=== PATIENT | female | born 1945 | race Caucasian/White ===

== ENCOUNTER → 2016-08-30 | Outpatient (CLI) | payer MEDICARE, BC | LOC: LAB.O 08:51 | PROVIDERS: ATTEND Family Medicine | DX: M06.9 Rheumatoid arthritis, unspecified (principal); Z79.899 Other long term (current) drug therapy ==

== ENCOUNTER → 2016-10-06 | Outpatient (CLI) | payer MEDICARE, BC ==
--- NOTE | 2016-10-07 06:45 | MRI ---
Study: MRI of the Lumbar Spine. Indication: RADICULOPATHY. Low back pain radiating to the right hip and buttocks. Technique: Multiplanar, multi sequence MRI of the lumbar spine was obtained without intravenous contrast. Comparison: None. Findings: The designated L5-S1 disc space level is visualized on axial T2 image 3. Vertebral body height maintained. Levoscoliosis lumbar spine centered at L3-L4. Lumbar pedicles congenitally short throughout. No marrow infiltrating lesion. Conus medullaris normal in caliber and signal terminating at T12-L1. Level by level analysis as follows: T12-L1: Mild disc space height loss and disc desiccation with a 3 mm broad-based central disc protrusion and annular fissuring at its base, otherwise unremarkable L1-L2: Moderate anterior disc space height loss and disc desiccation with mild Modic type 2 endplate changes. 3 mm disc bulge and mild bilateral neural foraminal narrowing. No spinal canal narrowing. Mild bilateral facet arthrosis. L2-L3: Moderate right lateral disc space height loss and disc desiccation with patchy Modic type 2 endplate changes. 3 mm disc bulge with moderate bilateral facet arthrosis. Tiny facet joint effusions. Indentation ventral thecal sac with mild spinal canal narrowing, mid sagittal thecal center 9 mm. Mild bilateral recess narrowing. Mild bilateral neural foraminal narrowing. L3-L4: Trace retrolisthesis. Severe right lateral disc space height loss and disc desiccation with patchy Modic type 1 and 2 endplate changes. 4 mm right eccentric disc osteophyte complex and moderate bilateral facet arthrosis. Prominent dorsal epidural fat. Severe spinal canal narrowing, mid sagittal thecal sac diameter 4.5 mm. Severe right and mild to moderate left neural foraminal narrowing. L4-L5: Severe left lateral disc space height loss and disc desiccation with trace retrolisthesis. 4 mm left eccentric disc bulge. Moderate bilateral facet arthrosis. Superimposed small left paracentral disc extrusion measuring up to 4 mm AP by 10 mm transverse by 12 mm craniocaudal with extension below the disc space level. There is resultant moderate to severe left lateral recess narrowing, moderate to severe spinal canal narrowing, moderate right lateral recess narrowing. Mid sagittal thecal sac diameter 5.7 mm. Severe left and mild to moderate right neural foraminal narrowing. 8 mm synovial cyst emanates from the posterior inferior margin of the left facet joint. L5-S1: Mild to moderate disc space height loss and disc desiccation with a 3.5 mm left eccentric disc bulge and moderate bilateral facet arthrosis. There is resultant moderate left neural foraminal narrowing. 6 mm synovial cyst emanates from the posterior inferior margin left facet joint. Impression: Fairly pronounced multilevel lumbar disc disease accentuated by congenitally short lumbar pedicles. Findings are most significant at the L3-L4 disc space level where there is severe spinal canal narrowing in addition to severe right and mild to moderate left neural foraminal narrowing. Additional findings as above. Electronically signed by: Cristi Gage MD 10/07/2016 06:43
== END | disposition home or self-care (01) ==
LOC: MRI 07:32
PROVIDERS: ATTEND Specialist
DX: M48.06 Spinal stenosis, lumbar region (principal)

== ENCOUNTER → 2017-06-01 | Outpatient (CLI) | payer MEDICARE, BC | END | disposition home or self-care (01) | LOC: GMAJ 10:25 | PROVIDERS: ATTEND Family Medicine | DX: M06.9 Rheumatoid arthritis, unspecified (principal); I10 Essential (primary) hypertension ==

== ENCOUNTER → 2017-08-16 | Outpatient (CLI) | payer MEDICARE, BC ==
--- NOTE | 2017-08-16 16:25 | US ---
EXAM DESCRIPTION: Carotid Duplex: ULTRASOUND. CLINICAL HISTORY: OTHER SPECIFIED SYMPTOMS AND SIGNS INVOLVING THE CIRCULATORY... COMPARISON: None. TECHNIQUE: Transcutaneous scanning utilizing 2-dimensional and Doppler modes to evaluate the bilateral carotid systems and vertebral arteries. Percentage of diameter of stenosis or no stenosis recorded will be based upon NASCET criteria. FINDINGS: Peak systolic/end diastolic (CM-Sec) CCA Right 106/16 Left 76/17. ICA Right proximal 70/18, mid 68/24. Left proximal 66/22, distal 63/18. Vertebral Right 51/17 Left 37/5. ECA (PS Only) Right 76 left 47. ICA/CCA peak systolic ratio: Right 0.7 Left 0.9 ICA/CCA end diastolic ratio: Right 1.1 Left 1.3 Vertebral arteries: antegrade flow. Comments: Atherosclerotic thickening on one wall of the left proximal ICA. Area stenosis is 9%. Diameter stenosis is 28%. Focal atherosclerotic thickening along one wall of the right CCA bulb. Area stenosis is 23%, diameter stenosis is 39%. Bilateral arterial waveforms of the proximal ICAs show spectral broadening. IMPRESSION: 1. Doppler evaluation of the bilateral carotid systems and vertebral arteries shows no hemodynamically significant stenoses. 2. No significant amount of plaque seen in the carotid arteries bilaterally. Bilateral vertebral arteries showed antegrade-cephalad flow. Electronically signed by: Cornelio Bang MD 08/16/2017 4:23 PM MOLDING MACHINE OPERATOR HELPER
== END | disposition home or self-care (01) ==
LOC: US 12:51
PROVIDERS: ATTEND Family Medicine
DX: R09.89 Other specified symptoms and signs involving the circulatory and respiratory systems (principal)

== ENCOUNTER → 2017-10-31 | Outpatient (CLI) | payer MEDICARE, BC | LOC: GMAJ 12:29 | PROVIDERS: ATTEND Family Medicine | DX: Z79.899 Other long term (current) drug therapy (principal) ==

== ENCOUNTER → 2018-03-15 | Outpatient (CLI) | payer MEDICARE, BC ==
--- NOTE | 2018-03-16 12:51 | MAM ---
EXAM DESCRIPTION: 3D Screening BILATERAL : Digital Mammography. CLINICAL HISTORY: 72 years Female SCREENING . No complaints. Sister with breast cancer. Childbirth. Postmenopausal. Currently on HRT.. COMPARISON: 2-D digital screening bilateral study 12/08/2015. No prior reports available. TECHNIQUE: Bilateral CC and MLO projection full-field images, 3-D tomosynthesis digital mammographic technique. CAD not utilized. FINDINGS: The breast parenchymal density pattern is: Scattered areas of fibroglandular density. No skin thickening or nipple retraction. Bilateral axillary lymph nodes. Bilateral solitary microcalcifications. Bilateral vascular calcifications. No new focal, stellate mass or density, focal asymmetry , and no suspicious microcalcifications bilaterally. Stable mammograms compared to prior study, taking into account differences in mammographic technique. IMPRESSION: BI-RADS CATEGORY: 2 - BENIGN FINDINGS. FOLLOW UP: Routine digital bilateral screening, one year interval from March 2018. Written communication explaining the IMPRESSION and follow-up, will be mailed to the patient and referring health care provider. According to the [employer], yearly mammograms are recommended starting at age 40 and continuing as long as a woman is in good health. Any breast change noted on a breast self-exam should be reported promptly to the patient's healthcare provider. Breast MRI is recommended for women with an approximately 20-25% or greater lifetime risk of breast cancer, including women with a strong family history of breast or ovarian cancer and women who have been treated for Hodgkin's disease. A negative mammographic report should not delay tissue diagnosis in patients with significant clinical history or physical findings. Extremely dense breast tissue limits the sensitivity of digital mammography. Electronically signed by: Cornelio Bang MD 03/16/2018 12:50 PM CDT
== END ==
LOC: MAMMO 08:00
PROVIDERS: ATTEND Family Medicine
DX: Z12.31 Encounter for screening mammogram for malignant neoplasm of breast (principal)

== ENCOUNTER → 2018-07-24 | Outpatient (CLI) | payer BC, MEDICARE | LOC: GMAJ 10:40 | PROVIDERS: ATTEND Family Medicine | DX: M06.9 Rheumatoid arthritis, unspecified (principal) ==

== ENCOUNTER → 2018-09-13 | Outpatient (CLI) | payer MEDICARE, BC ==
--- NOTE | 2018-09-13 18:45 | MRI ---
EXAM DESCRIPTION: Lumbar Spine w/wo Contrast: Magnetic Resonance Imaging. CLINICAL HISTORY: SPONDYLOSIS LUMBAR REGION COMPARISON: None Available. TECHNIQUE: Multiplanar, MRI, multiple standard sequences, without and with standard dose Gadolinium IV contrast, lumbar spine. No adverse reactions. FINDINGS: L5-S1: Posterior bilateral L5 partial laminectomy is the prior study. Bilateral facet arthrosis more left than right. Minimal disc desiccation and minimal posterior bulge in the midline. Disc space loss and Modic type II endplate reactive changes to the left of midline with moderate narrowing of the left foramen. Mild narrowing of the right foramen. Edema behind the left facet joint with minimal enhancement. Normal enhancement in the thecal sac. Minimal canal narrowing. L4-5: Minimal disc space loss on the right and moderate disc space loss on the left with Modic type II endplate reactive changes. Anterior disc bulge and endplate ridging. Trace retrolisthesis. Posterior disc bulge in the midline into the left of midline. Mild canal narrowing. Also bulge with spur below the disc space encroaching on the left subarticular recess and the descending left L5 nerve. Granulation tissue around the partial laminectomy site, minimal enhancement. Bilateral facet arthrosis left more than right with flavum ligament hypertrophy. Minimal enhancement of the facet joints left more than right. Question deformity or defect of the left L4 pars interarticularis. Left foraminal stenosis and mild right foraminal narrowing. No abnormal enhancement in the thecal sac. L3-4: Minimal narrowing of the left side of the disc space and moderate to severe narrowing right side with Modic type II endplate reactive changes. Anterior bulge with endplate ridging. Grade 1 anterolisthesis 4 mm. Posterior broad-based bulge abutting the thecal sac and disc bulge inferiorly effacing the bilateral lateral recesses. Mild canal narrowing. Right side disc osteophyte complex encroachment on the foramen which is stenotic. Stable since the prior study. Left foramen is minimally narrowed. Enhancement of the anterior L3 endplate but no enhancement in the remaining endplates or disc. No fluid or abnormal enhancement in the canal. L2-3: Disc desiccation and minimal disc space loss on the left. Anterior disc bulge and spurs. Moderate disc space loss on the right with disc osteophyte complex bulging into the soft tissues and moderate narrowing of the foramen. Modic type II endplate reactive changes on the right. Minimal enhancement, but no fluid collection. 2 mm grade 1 retrolisthesis. Disc and osteophyte bulge posteriorly to the right of midline and inferior to the disc space encroaching on the right subarticular recess. Mild to moderate canal narrowing. Flavum ligament hypertrophy bilaterally with facet arthrosis. Hyperintense T1 and T2 signal in the posterior inferior L2 endplate circumscribed. Hypointense on STIR image. L1-2: Disc desiccation anterior disc bulge and spurs and minimal disc space loss. Posterior broad-based bulge. Facet arthrosis and ligament hypertrophy bilaterally. Moderate right foraminal narrowing and mild left foraminal narrowing. Marrow heterogeneity. Normal contrast enhancement. Mild canal narrowing. T12-L1: Disc space maintained with minimal disc desiccation. Tiny posterior midline bulge with T2-weighted annular fissure. Circumscribed hyperintense T1 and T2 signal in the T11, T12, and L1 vertebral bodies. Mild canal narrowing. Bilateral foraminal mild narrowing. Conus terminates at this level. No abnormal paravertebral enhancement or enhancement in the canal. Moderate L1-L4 levoscoliosis. Vertebral bodies are not compressed at any level. Multiple foci of heterogeneous marrow signal in the vertebral bodies and the posterior elements with no corresponding abnormal contrast enhancement.. No other regions of abnormal Contrast enhancement. Paravertebral soft tissues with muscle atrophy.Perivertebral contrast enhancement as described. IMPRESSION: 1. Bilateral L5 and L4 partial laminectomy since the prior study. Minimal enhancement of the granulation tissue and posterior soft tissues at these levels but no definite soft tissue mass or fluid collection. No abnormal enhancement in the canal or abnormal fluid collection in the canal at any level. 2. Minimal contrast enhancement in the soft tissues abutting the left L5-S1 facet joint which could indicate acute inflammation. No soft tissue mass. Enhancement of paravertebral soft tissues and disc osteophyte complex to the right of midline at the L2-3 level which can indicate acute inflammation. If the impression of spondylosis since the prior study. No fluid collection. 3. Left subarticular recess narrowing versus stenosis at L4-5 secondary to disc osteophyte encroachment, correlate for left L5 radiculopathy. Resection of prior herniated disc. Left foraminal stenosis secondary to spondylosis and facet arthrosis which could be causing left L4 radiculopathy. This is progressed since the prior study. Possible spondylolysis left L4 pars. 4. Posterior bulge of the L3-4 disc osteophyte complex encroaching on the bilateral lateral recesses more right than left with grade 1 retrolisthesis. Correlate for right L4 radiculopathy. Right foraminal stenosis could be causing impingement of the right L3 nerve. Stable since the prior study. 5. Posterior midline right L2-3 disc osteophyte complex bulge into the canal and below the endplate effacing the right subarticular recess possibly encroaching on the right L3 nerve. This is progressed since the prior study. Electronically signed by: Cornelio Bang MD 09/13/2018 6:42 PM MAJOR SALES ASSOCIATE
== END ==
LOC: LAB.O 09:56
PROVIDERS: ATTEND Anesthesiology Pain Medicine
DX: M47.896 Other spondylosis, lumbar region (principal); M51.86 Other intervertebral disc disorders, lumbar region; M25.78 Osteophyte, vertebrae

== ENCOUNTER → 2018-09-20 | Outpatient (CLI) | payer MEDICARE, BC | LOC: GMAJ 11:25 | PROVIDERS: ATTEND Family Medicine | DX: M06.9 Rheumatoid arthritis, unspecified (principal) ==

== ENCOUNTER → 2018-12-13 | Outpatient (CLI) | payer MEDICARE, BC ==
--- NOTE | 2018-12-13 19:30 | MRI ---
EXAM DESCRIPTION: Thoracic Spine w/o Contrast: Magnetic Resonance Imaging. CLINICAL HISTORY: SPONDYLOSIS THORACIC REGION COMPARISON: MRI lumbar spine 09/13/2018. TECHNIQUE: Multiplanar, multiple standard sequences, non contrast MRI, thoracic spine. FINDINGS: T2-T3: Anterior disc space loss and endplate ridging. Trace anterolisthesis. Bilateral facet hypertrophic arthrosis and foraminal narrowing, more on the right, with possible compromise of the right exiting T2 nerve root. Facet arthrosis on the right at T3-4 also narrowing the foramen. Desiccation of the disc with anterior endplate ridging but no posterior bulging. Remaining foramina are unremarkable. Desiccation of the T5-6 disc, T6-7 disc, and T7-T8 disc with anterior endplate ridging. Minimal disc space narrowing. Remaining discs with normal signal. Disc spaces are preserved. Canal and foramina are patent. No scoliosis. Facet joints are unremarkable. Conus terminates below the T12-L1 disc space. Cord with normal signal, no compression. Paravertebral soft tissues are unremarkable. Circumscribed hyperintense T1 and T2 signal in theT2, T3, T4, T6, T7, T8, T10, T11, and T12 vertebral bodies consistent with hemangiomas. Heterogeneous marrow signal in the remaining vertebral bodies and the posterior elements. Vertebral bodies are not compressed at any level. IMPRESSION: 1. Bilateral narrowing of the T2-T3 foramina secondary to facet arthrosis, more on the right with possible compromise of the right exiting T2 nerve. Disc desiccation. 2. Facet arthrosis on the right at T3-4 narrowing the foramen with anterior disc desiccation. No disc herniation at any level.. Electronically signed by: Cornelio Bang MD 12/13/2018 7:28 PM CDT
== END ==
LOC: MRI 10:00
PROVIDERS: ATTEND Anesthesiology Pain Medicine
DX: M47.894 Other spondylosis, thoracic region (principal); M51.34 Other intervertebral disc degeneration, thoracic region

== ENCOUNTER → 2019-02-13 | Outpatient (CLI) | payer MEDICARE, BC | LOC: GMAJ 10:45 | PROVIDERS: ATTEND Family Medicine | DX: M06.9 Rheumatoid arthritis, unspecified (principal) ==

== ENCOUNTER → 2019-09-03 | Outpatient (CLI) | payer BC, MEDICARE | LOC: GMA 10:34 | PROVIDERS: ATTEND Family Medicine | DX: M06.9 Rheumatoid arthritis, unspecified (principal); E78.2 Mixed hyperlipidemia ==

== ENCOUNTER → 2019-12-05 | Outpatient (CLI) | payer MEDICARE, OTHER | LOC: GMAJ 11:31 | PROVIDERS: ATTEND Family Medicine | DX: M06.9 Rheumatoid arthritis, unspecified (principal) ==

== ENCOUNTER 2019-12-13 05:36 | Day surgery (SDC) | payer MEDICARE, OTHER ==
[2019-12-13] MEDS ORDERED: LACTATED RINGERS 1,000 ML ONE (06:52)
[2019-12-13] MEDS ORDERED: PROPOFOL 200 MG/20 ML VIAL IV ONE (07:00)
[2019-12-13] MEDS ORDERED: LIDOCAINE 1% 10 ML VIAL INJ ONE (07:00)
[2019-12-13] MEDS ORDERED: ePHEDrine SULF 50 MG/ML ONE (07:00)
[2019-12-13] MEDS ORDERED: LACTATED RINGERS 1,000 ML IVS ONE (08:05)
--- NOTE | 2019-12-13 09:01 | OP ---
DATE OF PROCEDURE: 12/13/19 PREOPERATIVE DIAGNOSIS: 1. Chest pain. 2. Gastroesophageal reflux disease. POSTOPERATIVE DIAGNOSIS: 1. Gastritis. PROCEDURE: 1. EGD with pylorus biopsy x2. 2. EGD with esophageal biopsy x1. SURGEON: Felipe Trimble MD ANESTHESIA: General. FINDINGS: She had striping in the pylorus consistent with gastritis. The duodenum appeared normal. There was a hiatal hernia approximately 4.5 cm. There was a non-digested pill in the body of her stomach with the number 152 on it and a small polyp in the esophagus. There were about three of them and they looked inflammatory. No severe esophagitis was seen. No evidence of Martin's esophagus seen. COMPLICATIONS: None. ESTIMATED BLOOD LOSS: None. PLAN: Discharge. INDICATION: As stated. PROCEDURE: General anesthesia was induced in the lateral position. The endoscope was introduced without difficulty. At the distal esophagus, there was a turn and it was difficult getting into the stomach, but we did. There did not appear to be any stricturing. It was simply the hiatal hernia in the angle, but we got in safely. We went through to the third portion of the duodenum and did not notice any significant duodenitis or ulcers. Upon withdrawal, we had the watermelon type striping in the pylorus. Two biopsies were taken, one for H. pylori. Retroflexion revealed the hiatal hernia just over 4 cm. There was no evidence of ulcers there. The pill that was there undigested, she had taken it this morning. I do not know exactly what time, but hours ago, but this was not digesting on the antacids she is taking. On withdrawal, there were a couple of small, flat polyps that appeared hyperplastic. One was taken as a representation. Otherwise, the esophagus appeared normal with good peristalsis as well. Upon withdrawal, I suctioned the air and a little bit of mucus. She was then awakened and taken to Recovery to be discharged. #[id number] [facility]
[2019-12-13 15:09] VITALS: BP 129/69; TEMP 97; O2SAT 96
== END 2019-12-13 09:40 | disposition home or self-care (01) ==
LOC: AMB 05:36
PROVIDERS: ATTEND Surgery
DX: K21.9 Gastro-esophageal reflux disease without esophagitis (principal); K29.70 Gastritis, unspecified, without bleeding; K44.9 Diaphragmatic hernia without obstruction or gangrene; K22.8 Other specified diseases of esophagus; I10 Essential (primary) hypertension; E78.00 Pure hypercholesterolemia, unspecified; F32.9 Major depressive disorder, single episode, unspecified; M06.9 Rheumatoid arthritis, unspecified; Z80.0 Family history of malignant neoplasm of digestive organs; Z79.82 Long term (current) use of aspirin; Z79.899 Other long term (current) drug therapy; Z88.2 Allergy status to sulfonamides
CPT/HCPCS: 00731; 43239; 82948; 88305; 88342; J3490; J7120

== ENCOUNTER → 2020-01-01 | Outpatient (CLI) | payer MEDICARE, OTHER ==
--- NOTE | 2020-01-01 14:36 | US ---
EXAM DESCRIPTION: Gall Bladder: ULTRASOUND. CLINICAL HISTORY: EPIGASTRIC PAIN COMPARISON: None. TECHNIQUE: Transabdominal scanning: Garcia-scale and Doppler modes. FINDINGS: Gallbladder: Normal size. Echogenic stones measuring 4.7-2.9 mm. No fluid around the gallbladder. No wall thickening. 2.4 mm. Non-tender with transducer pressure. Common bile duct: caliber 4.5 mm within normal limits. Liver: Increased echogenicity; contour liver capsule smooth where seen. 2.2 cm cyst and 1.3 cm cyst in the left lobe. 2.2 cm cyst in the right lobe. No fluid around the liver. Intrahepatic biliary ducts normal caliber. Doppler hepatopedal flow portal vein.. Long axis right lobe 16.6 Pancreas: normal size Normal echogenicity. Duct not seen. Aorta: 2.2 cm normal caliber. Right kidney: long axis is 10.4 cm. Normal cortical thickness and physiologic age-related echogenicity. Minimal capsular lobulation. No echogenic stones or hydronephrosis.. IMPRESSION: 1. Small gallstones. No wall thickening or fluid. Nontender. Common bile duct normal caliber. 2. Fatty liver with normal size. Multiple cysts in both lobes. Otherwise unremarkable. Negative scans of the pancreas. 3. Age-related changes in the right kidney. Normal caliber of the proximal abdominal aorta. Electronically signed by: Cornelio Bang MD 01/01/2020 2:34 PM CDT
== END ==
LOC: US 08:38
PROVIDERS: ATTEND Surgery
DX: K80.20 Calculus of gallbladder without cholecystitis without obstruction (principal); K76.0 Fatty (change of) liver, not elsewhere classified; K76.89 Other specified diseases of liver; N28.9 Disorder of kidney and ureter, unspecified

== ENCOUNTER 2020-01-30 05:41 | Day surgery (SDC) | payer MEDICARE, OTHER ==
[~2020-01-30 05:41] MED LIST: ACETAMINOPHEN IV 1000MG 0 ML ONE; DEXMEDETOMIDINE HCL 200 MCG/2 ML INJ IV ONE; FAMOTIDINE INJ 10 MG/ML VIAL IV ONE; KETAMINE HCL 100 MG/ML VIAL ONE; MIDAZOLAM INJ 2 MG/2 ML VIAL ONE; ROCURONIUM BROMIDE 10 MG/ML VIAL ONE; SUGAMMADEX SODIUM 200 MG/2 ML VIAL IV ONE; fentaNYL CITRATE INJ 50 MCG/ML 2 ML AMP ONE
[2020-01-30] MEDS ORDERED: LACTATED RINGERS 1,000 ML ONE (06:33)
[2020-01-30] MEDS ORDERED: PROPOFOL 200 MG/20 ML VIAL IV ONE (07:00)
[2020-01-30] MEDS ORDERED: LIDOCAINE 1% 10 ML VIAL INJ ONE (07:00)
[2020-01-30] MEDS ORDERED: DEXAMETHASONE INJ 10 MG/ML VIAL ONE (07:00)
[2020-01-30] MEDS ORDERED: MAGNESIUM SULFATE INJ 1 GM/2 ML VIAL ONE (07:00)
[2020-01-30] MEDS ORDERED: BUPIVACAINE 0.5% W/EPI 30 ML VIAL INJ ONE ×3 (08:08→08:14)
[2020-01-30] MEDS ORDERED: LACTATED RINGERS 1,000 ML IVS ONE (08:20)
[2020-01-30] MEDS ORDERED: SUGAMMADEX SODIUM 200 MG/2 ML VIAL IV ONE (09:01)
[2020-01-30] MEDS ORDERED: MIDAZOLAM INJ 2 MG/2 ML VIAL ONE (09:02)
[2020-01-30] MEDS ORDERED: fentaNYL CITRATE INJ 50 MCG/ML 2 ML AMP ONE (09:02)
[2020-01-30] MEDS ORDERED: FAMOTIDINE INJ 10 MG/ML VIAL IV ONE (09:02)
[2020-01-30] MEDS ORDERED: ROCURONIUM BROMIDE 10 MG/ML VIAL ONE (09:02)
[2020-01-30] MEDS ORDERED: hydrALAZINE HCl 20 MG/ML VIAL ONE (09:50)
--- NOTE | 2020-01-30 10:31 | OP ---
DATE OF PROCEDURE: 01/30/20 PREOPERATIVE DIAGNOSIS: 1. Symptomatic cholelithiasis. POSTOPERATIVE DIAGNOSIS: 1. Symptomatic cholelithiasis. PROCEDURE: 1. Laparoscopic cholecystectomy. SURGEON: Felipe Trimble MD. ANESTHESIA: General and local. FINDINGS: Normal anatomy. COMPLICATIONS: None. ESTIMATED BLOOD LOSS: Minimal. SPECIMEN: Gallbladder. PLAN: Discharge. INDICATION: As stated. PROCEDURE: General anesthesia was induced. The patient was prepped and draped in sterile fashion. Marcaine 0.5% with epinephrine was used at all incision sites. While maintaining upward traction, a robert was made near the base of the umbilicus. Veress needle was introduced. There was free flow of fluid into the peritoneal cavity which was insufflated to an appropriate level with CO2 gas. The 5 mm trocar was placed followed by the camera. There was no evidence of bleeding or bowel injury. The patient was positioned and subxiphoid and lateral ports were placed under direct visualization without difficulty. The gallbladder fundus was easily identified. It was grasped and retracted superiorly and laterally. The infundibulum was grasped. The infundibular structures were dissected free. An anterior vessel was cauterized and the main duct and artery were triply ligated. The gallbladder was then dissected off the fossa in total and removed in the EndoCatch bag. The fossa was examined. It remained hemostatic. The clips were intact. There was no bleeding or bile leakage. The subxiphoid fascia was then closed with 0 Vicryl using the suture passer. It was airtight and non-bleeding. The remaining trocars were removed. There was no bleeding from the trocar sites. The wounds were irrigated and closed with Monocryl. Dressings were applied. The patient was awakened and taken to Recovery to be discharged. #[id number] [facility]
[2020-01-30] MEDS ORDERED: HYDROcodone 5MG/APAP 325MG 1 EA TAB ONE (10:47)
[2020-01-30 12:20] VITALS: BP 124/66; TEMP 96.7; O2SAT 96
== END 2020-01-30 11:50 | disposition home or self-care (01) ==
LOC: AMB 05:41
PROVIDERS: ATTEND Surgery
DX: K80.10 Calculus of gallbladder with chronic cholecystitis without obstruction (principal); I10 Essential (primary) hypertension; M06.9 Rheumatoid arthritis, unspecified; F32.9 Major depressive disorder, single episode, unspecified; E78.00 Pure hypercholesterolemia, unspecified; K21.9 Gastro-esophageal reflux disease without esophagitis; I25.10 Atherosclerotic heart disease of native coronary artery without angina pectoris; E66.9 Obesity, unspecified; Z88.2 Allergy status to sulfonamides; Z79.82 Long term (current) use of aspirin; Z79.899 Other long term (current) drug therapy; Z79.52 Long term (current) use of systemic steroids
CPT/HCPCS: 00790; 36415; 47562; 80053; 85025; 88304; 93005; J0360; J1100; J2250; J3010; J3475; J3490; J7120

== ENCOUNTER → 2020-02-20 | Outpatient (CLI) | payer MEDICARE, OTHER ==
--- NOTE | 2020-02-21 10:22 | MAM ---
EXAM DESCRIPTION: 3D Screening BILATERAL : Digital Mammography. CLINICAL HISTORY: 74 years Female ANNUAL SCREENING . No complaints. Female sibling with breast cancer at age 65. Menarche age 15. Childbirth age 19. Menopause age 56. HRT 5 or more years ago. Lifetime risk of developing breast cancer (Tyrer-Cuzick model)(%): 7.3. COMPARISON: Bilateral screening digital breast tomosynthesis March 2018. TECHNIQUE: Bilateral CC and MLO projection full-field images, digital tomosynthesis mammographic technique. Bilateral digital 2-D full-field MLO images. CAD available for 2-D images. FINDINGS: The breast parenchymal density pattern is: Scattered areas of fibroglandular density. No skin thickening or nipple retraction. Skin mole markers left breast. Retroareolar right breast focal asymmetry has increased since the prior study. No new focal, stellate mass or density, focal asymmetry , and no suspicious microcalcifications left breast. IMPRESSION: BI-RADS CATEGORY: 0 - INCOMPLETE- Need additional imaging evaluation. RECOMMENDATIONS: FOLLOW-UP: Recall for additional imaging: Directed right breast. Ultrasound of the region of interest. Written communication concerning the IMPRESSION and Follow-up, will be mailed to the patient and referring health care provider. Electronically signed by: Cornelio Bang MD 02/21/2020 10:21 AM CDT
== END ==
LOC: MAMMO 08:20
PROVIDERS: ATTEND Family Medicine
DX: Z12.31 Encounter for screening mammogram for malignant neoplasm of breast (principal)

== ENCOUNTER → 2020-03-03 | Outpatient (CLI) | payer MEDICARE, OTHER | LOC: GMAJ 14:36 | PROVIDERS: ATTEND Family Medicine | DX: M06.9 Rheumatoid arthritis, unspecified (principal); E78.2 Mixed hyperlipidemia ==

== ENCOUNTER → 2020-03-09 | Outpatient (CLI) | payer MEDICARE, OTHER ==
--- NOTE | 2020-03-10 08:49 | US ---
EXAM DESCRIPTION: Breast,Right: Ultrasound. CLINICAL HISTORY: 74 yearsFemaleABNORMAL MAMMO. Focal asymmetry right breast. COMPARISON: Bilateral screening digital breast tomosynthesis February 19. TECHNIQUE: Transcutaneous scanning of the retroareolar right breast utilizing french-scale and Doppler modes. Scanning performed by the tube cutter ; observation by Dr. Bang. FINDINGS: Mixture of fatty tissues and fibroglandular tissues, retroareolar right breast. Small ducts. Normal vascularity. Typical post periareolar shadowing. No dominant mass, no distinct cyst, no fluid collection, and no large calcifications. No overlying skin changes. IMPRESSION: Benign exam. BIRAD CATEGORY: 2 BENIGN FINDINGS. RECOMMENDATIONS: FOLLOW UP: Routine digital bilateral mammographic screening, one year interval from February 2020. Written communication explaining the IMPRESSION and follow-up, will be mailed to the patient and referring health care provider. The FINDINGS and the FOLLOW-UP plan were reviewed in person with the patient after the examination. According to the [employer], yearly mammograms are recommended starting at age 40 and continuing as long as a woman is in good health. Any breast change noted on a breast self-exam should be reported promptly to the patient's healthcare provider. Breast MRI is recommended for women with an approximately 20-25% or greater lifetime risk of breast cancer, including women with a strong family history of breast or ovarian cancer and women who have been treated for Hodgkin's disease. A negative mammographic report should not delay tissue diagnosis in patients with significant clinical history or physical findings. Extremely dense breast tissue limits the sensitivity of digital mammography. Electronically signed by: Cornelio Bang MD 03/10/2020 8:47 AM CDT
== END ==
LOC: MAMMO 10:00
PROVIDERS: ATTEND Family Medicine
DX: R92.8 Other abnormal and inconclusive findings on diagnostic imaging of breast (principal)

== ENCOUNTER 2020-04-13 13:12 | Inpatient (IN) | payer MEDICARE, OTHER ==
--- NOTE | 2020-04-13 13:30 | ED.PDOC ---
History of Present Illness - General Time Seen by Provider: 04/13/20 13:27 Source: patient, RN notes reviewed, Vital Signs reviewed, family Additional Information: .74-year-old female, presents to the ER because she was not acting right today, per daughter she is usually very active, and today patient was not feeling well very weak, daughter is a nurse and she noticed that when she woke up this morning she was not doing well, they finally were able to get her to walk but he states that she is very weak and not her usual last time Was seen normal normal was yesterday Rheumatoid arthritis, and history of back pain, no previous history of stroke no known fever no chills and no sick contact patient was hypoxic at first Nurse, and she was put on oxygen with improvement of symptoms she was put nasal cannula at 3 - History of Present Illness Timing/Duration: other - this morning Improving Factors: nothing Worsening Factors: nothing Associated Symptoms: denies symptoms Allergies/Adverse Reactions: Allergies Sulfa Antibiotics Allergy (Verified 04/13/20 14:34) Home Medications: Ambulatory Orders Aspirin [Baby Aspirin] 81 mg PO DAILY 10/28/14 B-Complex W/ C & Folic Acid [Folbee Plus] 1 tab PO DAILY 10/28/14 Ibuprofen [Motrin] 600 mg PO QID PRN #30 tab 10/28/14 Methotrexate Inj [(None)] 50 mg IM WKLY 10/28/14 Nitroglycerin 0.4 mg Tab [Nitrostat] 1 ea SL PRN PRN 10/28/14 Prednisone 5 mg PO DAILY 10/28/14 Simvastatin [Zocor] 20 mg PO DAILY 10/28/14 B-Complex Vitamins [Vitamin B Complex] 1 tab PO DAILY 12/09/19 Calcium Carbonate-Cholecalcife [Calcium 1000 + D] 1 tab PO DAILY 12/09/19 Carboxymethylcellulose Sodium [Refresh Tears] 0.5 % OP PRN 12/09/19 Chlorthalidone 50 mg PO DAILY 12/09/19 Cholecalciferol [Vitamin D3] 1,000 unit PO DAILY 12/09/19 Duloxetine HCl [Cymbalta] 60 mg PO QPM 12/09/19 Gabapentin [Neurontin] 300 mg PO BID 12/09/19 HYDROcodone 10MG/APAP 325MG [Gay 10/325] 1 tab PO DAILY 12/09/19 Lisinopril [Prinivil] 10 mg PO QAM 12/09/19 Magnesium [Magnesium 250 mg] 1 tab PO DAILY 12/09/19 Metoprolol Succinate [Toprol Xl] 100 mg PO QPM 12/09/19 Multiple Vitamins W/ Minerals [Multivitamin Adults] 1 tab PO DAILY 12/09/19 Niacin 500 mg PO DAILY 12/09/19 David-3 Fatty Acids [David-3 Fish Oil 1000 mg] 1 cap PO DAILY 12/09/19 Potassium 99 mg PO DAILY 12/09/19 l-Methylfolate W/ Algae-Vitami [Metanx 3-90.314-2-35 mg] 1 cap PO DAILY 12/09/19 Cholecalciferol [Vitamin D-3] 2,000 unit PO DAILY 01/14/20 Pantoprazole Tablet [Protonix] 40 mg PO DAILY 01/14/20 Review of Systems - Review of Systems Constitutional: States: weakness EENTM: States: no symptoms reported Respiratory: States: no symptoms reported Cardiology: States: no symptoms reported Gastrointestinal/Abdominal: States: no symptoms reported Genitourinary: States: no symptoms reported Musculoskeletal: States: no symptoms reported Skin: States: no symptoms reported Neurological: States: no symptoms reported Endocrine: States: no symptoms reported Hematologic/Lymphatic: States: no symptoms reported Past Medical History (General) - Patient Medical History Hx Congestive Heart Failure: No Hx Diabetes: No Hx Cancer: No Hx Hepatitis C: No Hx MRSA: No - Vaccination History Hx Influenza Vaccination: Yes Hx Pneumococcal Vaccination: Yes - Social History Hx Tobacco Use: No Hx Alcohol Use: No - Female History Patient : No Family Medical History - Family History Mother Family History: Unknown Physical Exam - Physical Exam General Appearance: Well Developed, Well Groomed, Well Hydrated, Well Nourished Eye Exam: bilateral normal Ears, Nose, Throat: hearing grossly normal, normal ENT inspection, normal pharynx Neck: non-tender, full range of motion, supple, normal inspection Respiratory: chest non-tender, lungs clear, normal breath sounds, no respiratory distress, no accessory muscle use, respiratory distress Cardiovascular/Chest: normal peripheral pulses, regular rate, rhythm, no edema, no gallop, no JVD, no murmur Peripheral Pulses: radial,right: 2+, radial,left: 2+ Gastrointestinal/Abdominal: normal bowel sounds, non tender, soft, no organomegaly, no pulsatile mass Rectal Exam: deferred Back Exam: no CVA tenderness, no vertebral tenderness Extremity: normal range of motion, non-tender, normal inspection, no pedal edema Neurologic: crime specialist II-XII nml as tested, no motor/sensory deficits, alert, normal mood/affect, oriented x 3 Skin Exam: normal color Lymphatic: no adenopathy Progress - Progress Progress: The ER with confusion weakness not acting right, patient has a history of chronic back issues and arthritis, last time that she was seen normal was yesterday woke up this morning with the symptoms with generalized weakness on physical exam I did not see any focal neurological deficit, I ordered basic labs and because of the potential for infection I did order the basic septic work-up including blood cultures lactic acid chest x-ray. Rule out pneumonia I wanted to rule out urinary tract infection, but also because of the generalized weakness and not acting well I got a head CT did not show any evidence of any infection abnormalities, patient lactic acid was elevated so I order a dose of IV Rocephin I was concerned for possible UTI but patient's urine came back normal as well, patient was hypoxic when she first came in so even though the chest x-ray did not show pneumonia I ordered a CTA to rule out pulmonary emboli given the patient does have any response to for PE, I also ordered the covid test Also oredered fluids for the elevated lactic acid,and will admit the patient pending CTA chest 04/13/20 16:10 04/13/20 16:11 Departure - Departure Clinical Impression: Altered mental status Qualifiers: Altered mental status type: unspecified Qualified Code(s): R41.82 - Altered mental status, unspecified Disposition: Admit Patient Referrals: Felipe Delcid MD [Primary Care Provider] - 1-2 Weeks Home Medications: Ambulatory Orders Aspirin [Baby Aspirin] 81 mg PO DAILY 10/28/14 B-Complex W/ C & Folic Acid [Folbee Plus] 1 tab PO DAILY 10/28/14 Ibuprofen [Motrin] 600 mg PO QID PRN #30 tab 10/28/14 Methotrexate Inj [(None)] 50 mg IM WKLY 10/28/14 Nitroglycerin 0.4 mg Tab [Nitrostat] 1 ea SL PRN PRN 10/28/14 Prednisone 5 mg PO DAILY 03/17/15 Simvastatin [Zocor] 20 mg PO DAILY 10/28/14 B-Complex Vitamins [Vitamin B Complex] 1 tab PO DAILY 12/09/19 Calcium Carbonate-Cholecalcife [Calcium 1000 + D] 1 tab PO DAILY 12/09/19 Carboxymethylcellulose Sodium [Refresh Tears] 0.5 % OP PRN 12/09/19 Chlorthalidone 50 mg PO DAILY 12/09/19 Cholecalciferol [Vitamin D3] 1,000 unit PO DAILY 12/09/19 Duloxetine HCl [Cymbalta] 60 mg PO QPM 12/09/19 Gabapentin [Neurontin] 300 mg PO BID 12/09/19 HYDROcodone 10MG/APAP 325MG [Gay 10/325] 1 tab PO DAILY 12/09/19 Lisinopril [Prinivil] 10 mg PO QAM 12/09/19 Magnesium [Magnesium 250 mg] 1 tab PO DAILY 12/09/19 Metoprolol Succinate [Toprol Xl] 100 mg PO QPM 12/09/19 Multiple Vitamins W/ Minerals [Multivitamin Adults] 1 tab PO DAILY 12/09/19 Niacin 500 mg PO DAILY 12/09/19 David-3 Fatty Acids [David-3 Fish Oil 1000 mg] 1 cap PO DAILY 12/09/19 Potassium 99 mg PO DAILY 12/09/19 l-Methylfolate W/ Algae-Vitami [Metanx 3-90.314-2-35 mg] 1 cap PO DAILY 12/09/19 Cholecalciferol [Vitamin D-3] 2,000 unit PO DAILY 01/14/20 Pantoprazole Tablet [Protonix] 40 mg PO DAILY 01/14/20 Decision To Admit - Decistion To Admit Decision to Admit Reason: Admit from ER Decision to Admit Date: 04/13/20 Decision to Admit Time: 16:15
[2020-04-13] MEDS ORDERED: cefTRIAXone SODIUM 1 GM in SODIUM CHL 0.9% 50ML MIN-BAG+ 50 ML IVPB ONE (14:17)
--- NOTE | 2020-04-13 14:28 | RAD ---
EXAM DESCRIPTION: Chest,1 View x-ray CLINICAL HISTORY: 74 years Female, ams COMPARISON: None. IMPRESSION: Heart size and pulmonary vascularity are within normal limits. Atherosclerosis in the thoracic aorta. Hiatal hernia is suspected. Partially imaged dorsal column stimulator leads. Mild bibasilar linear opacities, nonspecific but favored to represent atelectasis or scarring. No pleural effusion or pneumothorax. No acute osseous abnormality. Electronically signed by: Alec Melvin MD 04/13/2020 2:26 PM CDT
--- NOTE | 2020-04-13 14:32 | CT ---
EXAM DESCRIPTION: Head CLINICAL HISTORY: ams COMPARISON: None available TECHNIQUE: Multiple axial images of the head without contrast. Multiplanar reformatted images. This exam was performed according to our departmental dose-optimization program, which includes automated exposure control, adjustment of the mA and/or kV according to patient size and/or use of iterative reconstruction technique. FINDINGS: There is no CT evidence of intracranial hemorrhage, mass effect, or large territory infarction. Mild generalized volume loss. Mild patchy supratentorial white matter hypodensities. There are no abnormal extra-axial fluid collections. Calcific plaque in the visualized arteries. There is no acute calvarial defect. The visualized paranasal sinuses and the mastoids are clear. IMPRESSION: 1. No CT evidence of an acute intracranial abnormality. If there is concern for an acute or subacute infarct, consider follow-up MRI. 2. Mild senescent changes. Electronically signed by: Alec Melvin MD 04/13/2020 2:29 PM CDT
[2020-04-13] MEDS ORDERED: POTASSIUM CHLORIDE 20 MEQ TAB PO ONE ×2 (15:08→21:29)
[2020-04-13] MEDS ORDERED: SODIUM CHLORIDE 0.9% 1000ML 1,000 ML IVS ONE (16:05)
--- NOTE | 2020-04-13 17:42 | CT ---
PROCEDURE: CTA Chest CLINICAL HISTORY: 74 years Female rule pe COMPARISON: None. TECHNIQUE: Contiguous axial images were obtained through the chest during the infusion of IV contrast. Reformatted images obtained. MIP reformatted images obtained. This exam was performed according to our department optimization program which includes automated exposure control, adjustment of the mA and/or kv according to patient size and/or use of iterative reconstruction technique. FINDINGS: Examination is suboptimal for evaluation of pulmonary emboli. The contrast is in the left heart and the aorta not within the pulmonary arteries. Mean Hounsfield units in the main pulmonary artery are 123. No evidence of embolus on the images provided. No significant thoracic adenopathy. No pericardial effusion. Hiatal hernia. Fatty infiltration of the liver. Atelectasis in the lung bases. Occasional patchy areas of infiltrate in the left upper and lower lobe IMPRESSION: Examination is suboptimal for evaluation of pulmonary embolus as the bolus of contrast was missed. This considerably limits evaluation of segmental and subsegmental vessels No evidence of embolus on the images provided Basilar atelectasis Patchy areas of nonspecific infiltrate in the left hemithorax. Imaging features can be seen with viral pneumonia, though are nonspecific and can occur with a variety of infectious and noninfectious processes. [PneInd] Electronically signed by: Brigitte Hearn MD 04/13/2020 5:41 PM CDT
--- NOTE | 2020-04-13 18:10 | HP ---
SUPERVISING PHYSICIAN: Alyssa Martin MD CHIEF COMPLAINT: Altered mental status. HISTORY OF PRESENT ILLNESS: This is a 74-year-old female patient who was brought to the Emergency Room because she was just not acting right. Her daughter said she is quite active and today she felt very weak and was actually unable to be understood and could not speak clearly. She actually would not even walk initially. They finally got her up to walk and she was just so weak, she could not walk for more than just a few feet. She was brought to the Emergency Room and her vital signs were temperature 98.4, heart rate 102, blood pressure 119/81, respiratory rate 16, O2 saturation 86%. Lab studies were done and white blood cell count was 14,600 with hemoglobin 13.1, hematocrit 38. She had a left shift on her differential. Sodium 136, potassium 2.9, chloride 98, BUN 29, creatinine 1.05, lactic acid 2.3, total bilirubin 1.5, AST 49, ALT 36, alkaline phosphatase 68, troponin less than 0.02. Urinalysis was unremarkable. Ethyl alcohol was less than 5.4. Her COVID-19 was negative. Blood cultures were drawn. Chest x-ray showed heart size and some pulmonary vascularity within normal limits, atherosclerosis in the thoracic aorta, hiatal hernia suspected, partially imaged dorsal column stimulator leads, mild bibasilar linear opacities noncompliance but favored to atelectasis or scar and pleural fluid. No pleural effusion or pneumothorax. No acute osseous abnormality. Her head CT shows no CT evidence of acute intracranial abnormality and mild senescent changes. Her chest CTA showed exam is suboptimal for evaluation of pulmonary embolism as the bolus of contrast was missed. This considerably limits evaluation of segmental and subsegmental vessels. No evidence of embolus on the images provided. Basilar atelectasis, patchy area of nonspecific infiltrate in the left hemithorax. Imaging features can be seen with viral pneumonia though are nonspecific and can occur with a variety of infectious and noninfectious processes. The patient was given some fluids as well as Rocephin in the ER as well as one dose of potassium. She was admitted to the Floor in stable condition. PAST MEDICAL HISTORY: 1. Hyperlipidemia. 2. Hypertension. 3. Carotid artery stenosis. 4. Gastroesophageal reflux disease. 5. Rheumatoid arthritis. 6. Lumbar spinal stenosis. PAST SURGICAL HISTORY: 1. Cholecystectomy. 2. Tubal ligation. 3. Cataract removal. 4. Cardiac catheterization. 5. Lumbar surgery. 6. Hysteroscopy with fibroid polyp removal. 7. Spinal stimulator implantation. OUTPATIENT MEDICATIONS: 1. Pantoprazole. 2. Metoprolol. 3. Simvastatin. 4. Methotrexate. 5. Vitamin B12. 6. Chlorthalidone. 7. Lisinopril. 8. [place]. 9. Duloxetine. 10. Prednisone. 11. Aspirin. 12. Calcium with vitamin D. 13. Orencia infusion once monthly. ALLERGIES: SULFA MEDICATIONS. FAMILY HISTORY: Positive for colon cancer. SOCIAL HISTORY: She is single. She has four children. She denies any tobacco, ETOH or illicit drug use. REVIEW OF SYSTEMS: GENERAL: Positive for fatigue. Negative for fever or weight changes. HEENT: Negative for sinus symptoms, ear pain, vision changes or sore throat. RESPIRATORY: Negative for wheezing, coughing or shortness of breath. CARDIAC: Negative for chest pain, palpitations or tachycardia. GASTROINTESTINAL: Negative for nausea, vomiting, diarrhea, constipation. GENITOURINARY: Negative for hematuria, dysuria or polyuria. MUSCULOSKELETAL: Negative for arthralgias, myalgias other than her rheumatoid arthritis. SKIN: Negative for lesions or rashes. NEUROLOGIC: As per the history of present illness. PHYSICAL EXAMINATION: VITAL SIGNS: Temperature 97.5, heart rate 81, blood pressure 93/57, respiratory rate 18, O2 saturation 96% on 2 liters nasal cannula. GENERAL: This is a 74-year-old female patient lying in her hospital bed. She is in no acute distress. HEENT: Normocephalic, atraumatic. Pupils are equal and reactive. Oropharynx is clear. NECK: Supple without mass. RESPIRATORY: Essentially clear to auscultation bilaterally. CARDIOVASCULAR: Regular rate and rhythm. GASTROINTESTINAL: Abdomen is soft, nondistended, nontender. Bowel sounds are positive. GENITOURINARY: Deferred. BACK: Deferred. EXTREMITIES: No cyanosis, clubbing or edema. NEUROLOGIC: Awake, alert and oriented times three. Cranial nerves II-XII are grossly intact as tested. LABORATORY: Labs and films are as per history of present illness. IMPRESSION: 1. Sepsis related to left lower lobe pneumonia, community acquired with an admitting WBC of 14,600, heart rate 102, O2 saturation 86% with lactic acid 2.3. 2. Altered mental status. 3. Hypokalemia and hypomagnesemia. 4. Rheumatoid arthritis. 5. Hypertension. 6. Gastroesophageal reflux disease. PLAN: The patient has been admitted to the hospital. I have initiated the pneumonia protocol and she will continue on azithromycin and Rocephin as well as aggressive pulmonary hygiene including breathing treatments, both p.r.n. and scheduled. I restarted her home medications. She will have a proton pump inhibitor for ulcer prophylaxis as well as Lovenox for DVT prophylaxis. I will repeat her labs in the morning as well as an echocardiogram. We will monitor her blood cultures. Hopefully, she can be discharged in the next 2 to 3 days. #[id number] [facility]
[2020-04-13] MEDS ORDERED: ONDANSETRON INJ 4 MG/2 ML VIAL IV PRN (18:51)
[2020-04-13] MEDS ORDERED: SODIUM CHLORIDE 0.9% (FLUSH) 10 ML SYG IV PRN (18:51)
[2020-04-13] MEDS ORDERED: CARBOXYMETHYLCELLULOSE 0.5% OPHTH SOL 0.4 ML UD BOTH_EYES SCH (19:00)
[2020-04-13] MEDS ORDERED: AZITHROMYCIN IV 500 MG VIAL IVPB ONE (19:22)
[2020-04-13] MEDS ORDERED: SODIUM CHLORIDE 0.9% 250ML 250 ML ONE (19:23)
[2020-04-13] MEDS ORDERED: LEVALBUTEROL NEBS 1.25 MG/3 ML VIAL INH PRN (19:24)
[2020-04-13] MEDS ORDERED: ACETAMINOPHEN 325 MG TAB PO PRN (19:24)
[2020-04-13] MEDS ORDERED: AZITHROMYCIN IV 500 MG in SODIUM CHLORIDE 0.9% 250ML 250 ML IVPB SCH (19:30)
[2020-04-13] MEDS: IV SET AND CAP CHANGE INJ INJ SCH (19:36)
[2020-04-13] MEDS: LEVALBUTEROL NEBS 1.25 MG/3 ML VIAL INH SCH (20:29)
[2020-04-13] MEDS: SODIUM CHLORIDE 0.9% (FLUSH) 10 ML SYG IV SCH (21:12)
[2020-04-13] MEDS: ENOXAPARIN SODIUM 40 MG/0.4 ML SYG SUBCU SCH (21:12)
[2020-04-13] MEDS: GABAPENTIN 300 MG CAP PO SCH (21:12)
[2020-04-13] MEDS ORDERED: MAGNESIUM SULFATE PREMIX 2GM 2 GM in PREMIX BAG 1 BAG IVPB ONE (21:29)
[2020-04-13] MEDS ORDERED: MAGNESIUM SULFATE PREMIX 2GM 50 ML IVPB ONE (21:37)
[2020-04-14] MEDS ORDERED: PANTOPRAZOLE SODIUM IV 40 MG VIAL IV SCH (06:30)
--- NOTE | 2020-04-14 07:18 | RAD ---
: 1945. TECHNIQUE: PA and lateral views of the chest. Comparison: April 13, 2020. Clinical history: Pneumonia. Heart size: Normal. Lungs: No acute consolidation. Small linear density at the left base from atelectasis or scar Pleura: There is blunting of the left costophrenic angle indicative of a small left pleural effusion. No pneumothorax. Mediastinum and cole: A hiatus hernia is present and measures 7.3 cm. Skeletal: Thoracic neurostimulator catheter wires. IMPRESSION: 1. Hiatus hernia. 2. Small left lower lobe atelectasis or scar and pleural fluid. Electronically signed by: Christofer Bishop MD 04/14/2020 7:17 AM CDT
[2020-04-14] MEDS ORDERED: AZITHROMYCIN IV 500 MG VIAL IVPB ONE (07:28)
[2020-04-14] MEDS ORDERED: cefTRIAXone SODIUM 1 GM VIAL ONE (07:28)
[2020-04-14] MEDS ORDERED: SODIUM CHLORIDE 0.9% 250ML 250 ML ONE (07:29)
[2020-04-14] MEDS ORDERED: SODIUM CHL 0.9% 50ML MIN-BAG+ 50 ML IVPB ONE (07:29)
[2020-04-14] MEDS: LEVALBUTEROL NEBS 1.25 MG/3 ML VIAL INH SCH ×4 (08:08→22:00)
[2020-04-14] MEDS: predniSONE 5 MG TAB PO SCH (10:10)
[2020-04-14] MEDS: GABAPENTIN 300 MG CAP PO SCH ×2 (10:10→20:13)
[2020-04-14] MEDS: CHLORTHALIDONE 25 MG TAB PO SCH (10:10)
[2020-04-14] MEDS: NIACIN 500 MG TAB PO SCH (10:10)
[2020-04-14] MEDS: FISH OIL 1,200 MG CAP PO SCH (10:10)
[2020-04-14] MEDS: POTASSIUM CHLORIDE 8 MEQ TAB PO SCH (10:10)
[2020-04-14] MEDS: ASPIRIN (CHEWABLE) 81 MG TAB PO SCH (10:10)
[2020-04-14] MEDS: cefTRIAXone SODIUM 1 GM in SODIUM CHL 0.9% 50ML MIN-BAG+ 50 ML IVPB SCH (10:11)
[2020-04-14] MEDS: HYDROcodone 10MG/APAP 325MG 1 EA TAB PO SCH (10:11)
[2020-04-14] MEDS: SODIUM CHLORIDE 0.9% (FLUSH) 10 ML SYG IV SCH ×2 (10:12→20:13)
[2020-04-14] MEDS ORDERED: VANCOMYCIN PER PHARMACY IVPB SCH (10:30)
[2020-04-14] MEDS: AZITHROMYCIN IV 500 MG in SODIUM CHLORIDE 0.9% 250ML 250 ML IVPB SCH (10:53)
--- NOTE | 2020-04-14 11:02 | US ---
EXAM DESCRIPTION: Carotid Duplex: ULTRASOUND. CLINICAL HISTORY: 74 years Female AMS; TIA COMPARISON: CT scan of abdomen and pelvis with contrast today. TECHNIQUE: Transcutaneous scanning utilizing french-scale and Doppler modes to evaluate the bilateral carotid systems and vertebral arteries. Percentage of diameter of stenosis or no stenosis recorded will be based upon NASCET criteria. FINDINGS: Peak systolic/end diastolic velocities (CM-Sec) CCA Right 110/0 Left 88/16. ICA Right proximal 77/15, mid 99/16. Left proximal 65/15, Distal 77/15. Vertebral Right 61/13 Left 48/0. ECA (PS Only) Right 136 left 71. ICA/CCA peak systolic velocity ratio: Right 0.9 Left 0.9 ICA/CCA end diastolic velocity ratio: Right n/a Left 0.9 Vertebral arteries: antegrade flow. Comments Comments: Bilateral atherosclerotic calcifications most prominent at the common carotid bifurcations. Right common carotid bulb: Area stenosis and diameter stenosis less than 40%. Area stenosis and diameter stenosis of the proximal right ICA. Less than 20%. Area and diameter stenoses in the left bifurcation and proximal ICA are less than 20%. IMPRESSION: 1. Doppler evaluation of the bilateral carotid systems and vertebral arteries shows no hemodynamically significant stenoses (less than 70%). 2. No significant amount of plaque in the carotid arteries bilaterally. Bilateral vertebral arteries showed antegrade-cephalad flow. Electronically signed by: Cornelio Bang MD 04/14/2020 11:00 AM CDT
[2020-04-14] MEDS: LISINOPRIL 10 MG TAB PO SCH (11:26)
--- NOTE | 2020-04-14 12:01 | CT ---
EXAM DESCRIPTION: Abdomen/Pelvis w/Contrast: Computed Tomography. CLINICAL HISTORY: 74 years Female Leukocytosis w/bacteremia COMPARISON: Carotid duplex ultrasound and chest x-ray on this visit. CTA chest and CT scan of the head 1 day ago. TECHNIQUE: Spiral-axial scans at 5 x 5 mm intervals through the abdomen and pelvis, after nonionic IV contrast no oral contrast. Coronal and sagittal 2.0 mm reconstructions. No delayed scans. No adverse reactions. Total Exam DLP: 1146 mGy-cm. This exam was performed according to our departmental dose-optimization program which includes automated exposure control, adjustment of the mA and/or kV according to patient size and/or use of iterative reconstruction technique; to reduce radiation dose to as low as reasonably achievable (ALARA). FINDINGS: Lung bases and pleura: Posterior recess left lower lobe atelectasis, more than right. Pleural parenchymal thickening inferior lingula Liver, Stomach, Spleen, Adrenal Glands: Moderate size hiatal hernia versus para esophageal hernia. Medication or food in the stomach. 1.6 and 1.7 cm cysts in the left hepatic lobe. Spleen and adrenal glands unremarkable. Pancreas, Gallbladder, Ducts: Surgical clips in the gallbladder fossa with no fluid. Minimal dilation of the common bile duct. Pancreas is negative. Kidneys and Ureters: Focal contrast enhancement versus 6 mm stone in the upper right renal collecting system. No radiodense stones on the left. No hydronephrosis or perirenal fluid bilaterally. Ureters are negative. Mesentery: No fatty stranding or fascial thickening. No free air or free fluid. Aorta: Tortuous with moderate atherosclerotic calcifications. Small Bowel: Unremarkable. Terminal Ileum/Cecum: Fluid and echogenic fecal matter in the dependent cecum. Normal caliber. Minimal gas in the appendix which is normal caliber. No inflammatory changes. Calcifications posterior and lateral to the cecum. Colon: Small air-fluid levels and fecal matter. Mid: With minimal fecal matter extending to the rectosigmoid. Distal sigmoid and rectum distended by fecal matter with abrupt transition in the distal sigmoid.. Best seen on CT axial series 2, image 68. Pelvic Organs: Uterus is retroverted with fundus deviated to the left. Drainage catheter in the urinary bladder with balloon inflated and bladder decompressed with minimal contrast. Ovaries not seen in the adnexa. No free fluid. Spine and Bony Pelvis: Multiple levels of lumbar spondylosis, disc desiccation and disc space loss and facet arthrosis. Lumbar levoscoliosis. Significant unilateral or foraminal narrowing L2-3, L3-4, and L4-5. Bilateral hypertrophic changes in the superior acetabula with minimal femoral head over coverage. Also subchondral cysts on the left and marginal spurs bilaterally. Abdominal Wall/Back Soft Tissues: Minimal diastases at the umbilicus but no incarcerated bowel. Small fatty inguinal hernia not containing bowel on the right. IMPRESSION: 1. Moderate size hiatal hernia versus paraesophageal hernia. 2 cysts in the left lobe of the liver 2. Focal contrast enhancement versus 6 mm nonobstructing stone upper collecting system right kidney. Catheter in the urinary bladder with balloon inflated. Bladder is decompressed. 3. Moderate constipation in the distal colon and sigmoid with abrupt transition in the distal sigmoid. No definite mass or inflammatory changes in the surrounding mesentery. 4. Uterus is retroverted and deviated to the left. No mass effect. No free fluid. 5. Multiple levels of spondylosis, facet arthrosis, and scoliosis. Foraminal narrowing or stenosis at L2-3, L3-4, and L4-5. Minimal diastases in the umbilicus but no incarcerated bowel. Small fatty right inguinal hernia not containing bowel. Electronically signed by: Cornelio Bang MD 04/14/2020 12:00 PM CDT
[2020-04-14] MEDS ORDERED: MAGNESIUM HYDROXIDE 30 ML UD PO PRN (12:10)
[2020-04-14] MEDS ORDERED: MAGNESIUM HYDROXIDE 30 ML UD PO ONE (12:11)
[2020-04-14] MEDS: VANCOMYCIN HCL INJ 1,000 MG, VANCOMYCIN HCL INJ 500 MG in SODIUM CHLORIDE 0.9% 250ML 25... IVPB SCH (13:06)
[2020-04-14] MEDS: DULoxetine HCL 30 MG CAP PO SCH (17:08)
[2020-04-14] MEDS: METOPROLOL SUCCINATE XL 100 MG TAB PO SCH (17:08)
[2020-04-14] MEDS ORDERED: SIMVASTATIN 20 MG TAB ONE (19:12)
[2020-04-14] MEDS ORDERED: PANTOPRAZOLE SODIUM TAB 40 MG PO ONE (19:12)
[2020-04-14] MEDS: SIMVASTATIN 20 MG TAB PO SCH (20:13)
[2020-04-14] MEDS: ENOXAPARIN SODIUM 40 MG/0.4 ML SYG SUBCU SCH (20:13)
--- NOTE | 2020-04-14 20:14 | PN ---
SUPERVISING PHYSICIAN: Livan Martin M.D. DATE: 04/14/20 SUBJECTIVE: The patient has had positive blood cultures overnight with gram positive cocci. I did discuss the plan of care with her daughter and the patient in regards to starting her on additional antibiotics for coverage waiting on culture results as well as plan of care will include additional scans to rule out any other source of infection, other than possible just pneumonia. The daughter and the patient both feel like she is more back to her normal self since starting treatment. She does remain afebrile. OBJECTIVE: VITAL SIGNS: Temperature 98.3, pulse 93, blood pressure 107/71, respirations 16, satting 97% on room air. GENERAL: The patient is resting comfortably in a chair. Does not appear to be in any acute distress. She is alert. CHEST: Lung sounds are fairly clear in all [place], a little diminished towards the bases. I do not hear any obvious rales, rhonchi or wheezing. HEART: Regular rate and rhythm. ABDOMEN: Soft, non-tender. Positive bowel sounds. EXTREMITIES: Without any edema. NEUROLOGIC: She is alert and oriented times three. LABORATORY: White count is down a little bit to 14,000, hemoglobin 11.3, hematocrit 34.0, platelet count 167,000. Differential shows a left shift. Chemistries show normal electrolytes today with potassium now at 3.9, creatinine is normal at 0.99 with BUN 22. Lactic acid normalized to 1.9, magnesium is now 2.2. Liver functions showing to be all within normal limits. RADIOLOGY: Abdominal/pelvis CT with contrast and per radiology interpretation shows a moderate sized hiatal hernia versus paraesophageal hernia with 2 cysts in the left lobe of the liver. There is a focal contrast enhancement versus 6 mm nonobstructing stone in the upper collecting system of the right kidney. Moderate constipation is noted in the distal colon and sigmoid with abrupt transition in the distal sigmoid. No definite mass or inflammatory changes in the surrounding mesentery. Uterus is retroverted and deviated to the left with no mass effect. No free fluid. There is multiple levels of spondylosis, facet arthrosis and scoliosis of L2-3, L3-4 and L4-5 with a mild diastases in the umbilicus but no incarcerated bowel. Small right fatty inguinal hernia with no bowel contained. Please see that report for details. Ultrasound of the carotid arteries per radiology interpretation shows no hemodynamically significant stenosis (less than 70%) with no significant amount of plaque in the carotid arteries bilaterally. There is bilateral vertebral arteries shown with antegrade-cephalad flow. Chest x-ray this morning per radiology interpretation shows hiatus hernia with a small left lower lobe atelectasis or scar and pleural fluid. ASSESSMENT: 1. Gram positive cocci, bacteremia. Likely etiology from left lower lobe pneumonia. 2. Sepsis secondary to both #1 and left lower lobe pneumonia, community acquired. 3. Altered mental status likely secondary to #1 and #2 showing some improvement with treatment. 4. Electrolyte imbalance to include hypokalemia and hypomagnesemia, resolved with replacement therapy. 5. Significant constipation. 6. Rheumatoid arthritis. 7. Hypertension. 8. Gastroesophageal reflux disease. PLAN: I am going to start the patient on Vancomycin per Pharmacy protocol for gram positive cocci awaiting culture results and sensitivities. She does have an implanted pain stimulator in her lower right back/flank area. On exam, there were not any signs of infection. Certainly we need to take this into account once we get identifications back and touch base with Dr. Valdes, Infectious Disease, to develop a plan of care for continuation of antibiotic therapy. More likely she will need a PICC line at some point, but will wait for culture results to come back. I have resumed her home medications. She remains on DVT prophylaxis and proton pump inhibitors for ulcer prophylaxis. Will follow her labs as needed as well as x-rays and continue with aggressive bronchial hygiene along with antibiotic coverage in addition to the Vancomycin to include Rocephin and azithromycin with breathing treatments. Anticipate at least another 24 to 48 hours awaiting final culture results to target antibiotic therapy appropriately so we can discharge her to outpatient treatment plan. Until then will continue to monitor and treat as needed. [facility][id number] [facility]
[2020-04-15] MEDS: VANCOMYCIN HCL INJ 1,000 MG, VANCOMYCIN HCL INJ 500 MG in SODIUM CHLORIDE 0.9% 250ML 25... IVPB SCH ×2 (06:01→23:58)
[2020-04-15] MEDS: PANTOPRAZOLE SODIUM TAB 40 MG PO SCH (06:01)
[2020-04-15] MEDS: LEVALBUTEROL NEBS 1.25 MG/3 ML VIAL INH SCH ×4 (07:45→19:13)
[2020-04-15] MEDS: CHLORTHALIDONE 25 MG TAB PO SCH (09:56)
[2020-04-15] MEDS: LISINOPRIL 10 MG TAB PO SCH (09:56)
[2020-04-15] MEDS: NIACIN 500 MG TAB PO SCH (09:56)
[2020-04-15] MEDS: GABAPENTIN 300 MG CAP PO SCH ×2 (09:57→21:08)
[2020-04-15] MEDS: POTASSIUM CHLORIDE 8 MEQ TAB PO SCH (09:57)
[2020-04-15] MEDS: FISH OIL 1,200 MG CAP PO SCH (09:57)
[2020-04-15] MEDS: predniSONE 5 MG TAB PO SCH (09:57)
[2020-04-15] MEDS: HYDROcodone 10MG/APAP 325MG 1 EA TAB PO SCH (09:57)
[2020-04-15] MEDS: cefTRIAXone SODIUM 1 GM in SODIUM CHL 0.9% 50ML MIN-BAG+ 50 ML IVPB SCH (09:57)
[2020-04-15] MEDS: SODIUM CHLORIDE 0.9% (FLUSH) 10 ML SYG IV SCH ×2 (09:57→21:08)
[2020-04-15] MEDS: ASPIRIN (CHEWABLE) 81 MG TAB PO SCH (09:57)
[2020-04-15] MEDS: AZITHROMYCIN IV 500 MG in SODIUM CHLORIDE 0.9% 250ML 250 ML IVPB SCH (10:38)
[2020-04-15] MEDS: BIFIDOBACTERIUM INFANTIS 4 MG CAP PO SCH (13:00)
--- NOTE | 2020-04-15 16:55 | PN ---
SUPERVISING PHYSICIAN: Livan Martin M.D. DATE: 04/15/20 SUBJECTIVE: The patient has not had any more shortness of breath overnight. She has had no chest pains and no further complaints. She has not run any fevers. OBJECTIVE: VITAL SIGNS: Temperature 98.2, pulse 73, blood pressure 113/54, respirations 20, satting 95% on room air. GENERAL: The patient is resting comfortably, just finished eating lunch. Does not look to be in any distress. She is alert. CHEST: Clear, just a little diminished towards the bases. No obvious rales or rhonchi was noted. HEART: Regular rate and rhythm. ABDOMEN: Soft, non-tender. Positive bowel sounds. EXTREMITIES: Without any edema. NEUROLOGIC: She is alert and oriented times three. LABORATORY: White count shows improvement down to 10,900 now, hemoglobin and hematocrit are stable at 11.3 and 32.7 respectively. Differential does continue to show a left shift. Platelet count is 175,000. Chemistries show normal electrolytes with creatinine 0.9. MICROBIOLOGY: Blood cultures did show gram positive cocci with culture and sensitivity results still pending. RADIOLOGY: No additional radiographic studies today. ASSESSMENT: 1. Gram positive cocci, bacteremia. Likely etiology from left lower lobe pneumonia. 2. Sepsis secondary to both #1 and left lower lobe pneumonia, community acquired. 3. Altered mental status likely secondary to #1 and #2 showing some improvement with treatment. 4. Electrolyte imbalance to include hypokalemia and hypomagnesemia, resolved with replacement therapy. 5. Significant constipation. 6. Rheumatoid arthritis. 7. Hypertension. 8. Gastroesophageal reflux disease. PLAN: The patient continues on Vancomycin, Rocephin and azithromycin for treatment of the gram positive cocci bacteremia along with the community acquired pneumonia. Still waiting on culture results. Again, once we get those back due to the fact that she has an implanted pain stimulator, will need to touch base with Dr. Valdes to figure out the plan of care on discharge for treatment of the bacteremia. Until then will continue to follow and treat the patient accordingly with the patient discharging hopefully by either Monday or Monday, depending again on culture results and need for additional coverage on antibiotics. [facility][id number] [facility]
[2020-04-15] MEDS: METOPROLOL SUCCINATE XL 100 MG TAB PO SCH (17:54)
[2020-04-15] MEDS: DULoxetine HCL 30 MG CAP PO SCH (17:54)
[2020-04-15] MEDS: SIMVASTATIN 20 MG TAB PO SCH (21:08)
[2020-04-15] MEDS: ENOXAPARIN SODIUM 40 MG/0.4 ML SYG SUBCU SCH (21:08)
[2020-04-16] MEDS: PANTOPRAZOLE SODIUM TAB 40 MG PO SCH (06:05)
--- NOTE | 2020-04-16 07:29 | RAD ---
EXAM DESCRIPTION: Chest,2 Views CLINICAL HISTORY: pneumonia COMPARISON: April 14, 2020 FINDINGS: Two-view chest x-ray shows cardiomediastinal silhouette and pulmonary vasculature to be within normal limits. The lungs are normally aerated. Chronic appearing interstitial thickening in the lower lobes and left upper lobe are similar to previous exam. Retrocardiac hiatal hernia.. Costophrenic angles are sharp. Dorsal column stimulators in the mid thoracic spine are seen. IMPRESSION: No radiographic evidence of acute cardiopulmonary disease. Chronic interstitial scarring or atelectasis is stable from previous. Electronically signed by: Kenneth López MD 04/16/2020 7:28 AM CDT
[2020-04-16] MEDS: LEVALBUTEROL NEBS 1.25 MG/3 ML VIAL INH SCH ×4 (09:10→19:25)
[2020-04-16] MEDS: cefTRIAXone SODIUM 1 GM in SODIUM CHL 0.9% 50ML MIN-BAG+ 50 ML IVPB SCH (09:32)
[2020-04-16] MEDS: FISH OIL 1,200 MG CAP PO SCH (09:33)
[2020-04-16] MEDS: BIFIDOBACTERIUM INFANTIS 4 MG CAP PO SCH (09:33)
[2020-04-16] MEDS: CHLORTHALIDONE 25 MG TAB PO SCH (09:33)
[2020-04-16] MEDS: NIACIN 500 MG TAB PO SCH (09:34)
[2020-04-16] MEDS: GABAPENTIN 300 MG CAP PO SCH ×2 (09:34→20:40)
[2020-04-16] MEDS: LISINOPRIL 10 MG TAB PO SCH (09:34)
[2020-04-16] MEDS: SODIUM CHLORIDE 0.9% (FLUSH) 10 ML SYG IV SCH ×2 (09:34→20:40)
[2020-04-16] MEDS: POTASSIUM CHLORIDE 8 MEQ TAB PO SCH (09:34)
[2020-04-16] MEDS: predniSONE 5 MG TAB PO SCH (09:34)
[2020-04-16] MEDS: ASPIRIN (CHEWABLE) 81 MG TAB PO SCH (09:34)
[2020-04-16] MEDS: HYDROcodone 10MG/APAP 325MG 1 EA TAB PO SCH (09:34)
[2020-04-16] MEDS: AZITHROMYCIN IV 500 MG in SODIUM CHLORIDE 0.9% 250ML 250 ML IVPB SCH (11:24)
--- NOTE | 2020-04-16 14:28 | PN ---
SUPERVISING PHYSICIAN: Alyssa Martin MD DATE: 04/16/20 SUBJECTIVE: The patient is sitting up in bed. Her daughters are at the bedside. We discussed her cultures coming back and that she would need to stay in the hospital until the C&S is back. Otherwise, she had no complaints of chest pain, nausea, vomiting, diarrhea, constipation or chest pain. OBJECTIVE: VITAL SIGNS: Temperature 97.7, heart rate 75, blood pressure 108/65, respiratory rate 18, O2 saturation 99% on room air. RESPIRATORY: Slightly diminished at the bases. Otherwise, clear to auscultation bilaterally. CARDIAC: Regular rate and rhythm. GASTROINTESTINAL: Abdomen is soft, nondistended, nontender. Bowel sounds are positive. NEUROLOGIC: Awake, alert and oriented times three. LABORATORY: WBCs 7.7, hemoglobin 11.2, hematocrit 33.4. Electrolytes are basically within normal limits. MICROBIOLOGY: Preliminary blood cultures are pending. RADIOLOGY: Chest x-ray shows no radiographic evidence of acute cardiopulmonary disease with interstitial scarring or atelectasis is stable from previous. All other labs and films have been reviewed via the EMR. ASSESSMENT: 1. Gram positive cocci, bacteremia. Likely etiology from left lower lobe pneumonia. 2. Sepsis secondary to both #1 and left lower lobe pneumonia, community acquired. 3. Altered mental status likely secondary to #1 and #2 showing some improvement with treatment. 4. Electrolyte imbalance to include hypokalemia and hypomagnesemia, resolved with replacement therapy. 5. Significant constipation. 6. Rheumatoid arthritis. 7. Hypertension. 8. Gastroesophageal reflux disease. PLAN: We will continue present supportive care. We will continue to monitor the patient closely and we will await the C&S report so we know what antibiotics to send the patient home with. We will hold on any labs as they have stabilized today and hopefully she can be discharged in the morning. We will follow and treat as needed. #[id number] [facility]
[2020-04-16] MEDS: METOPROLOL SUCCINATE XL 100 MG TAB PO SCH (18:01)
[2020-04-16] MEDS: DULoxetine HCL 30 MG CAP PO SCH (18:01)
[2020-04-16] MEDS: VANCOMYCIN HCL INJ 1,000 MG, VANCOMYCIN HCL INJ 500 MG in SODIUM CHLORIDE 0.9% 250ML 25... IVPB SCH (18:01)
[2020-04-16] MEDS: IV SET AND CAP CHANGE INJ INJ SCH (19:20)
[2020-04-16] MEDS: SIMVASTATIN 20 MG TAB PO SCH (20:40)
[2020-04-16] MEDS: ENOXAPARIN SODIUM 40 MG/0.4 ML SYG SUBCU SCH (20:40)
[2020-04-17] MEDS: PANTOPRAZOLE SODIUM TAB 40 MG PO SCH (05:54)
[2020-04-17] MEDS: LEVALBUTEROL NEBS 1.25 MG/3 ML VIAL INH SCH ×2 (08:20→13:11)
[2020-04-17 09:46] VITALS: BP 125/75; TEMP 97.7
[2020-04-17] MEDS: BIFIDOBACTERIUM INFANTIS 4 MG CAP PO SCH (09:47)
[2020-04-17] MEDS: NIACIN 500 MG TAB PO SCH (09:47)
[2020-04-17] MEDS: POTASSIUM CHLORIDE 8 MEQ TAB PO SCH (09:47)
[2020-04-17] MEDS: CHLORTHALIDONE 25 MG TAB PO SCH (09:47)
[2020-04-17] MEDS: ASPIRIN (CHEWABLE) 81 MG TAB PO SCH (09:47)
[2020-04-17] MEDS: predniSONE 5 MG TAB PO SCH (09:47)
[2020-04-17] MEDS: HYDROcodone 10MG/APAP 325MG 1 EA TAB PO SCH (09:47)
[2020-04-17] MEDS: FISH OIL 1,200 MG CAP PO SCH (09:47)
[2020-04-17] MEDS: GABAPENTIN 300 MG CAP PO SCH (09:47)
[2020-04-17] MEDS: LISINOPRIL 10 MG TAB PO SCH (09:48)
[2020-04-17] MEDS: cefTRIAXone SODIUM 1 GM in SODIUM CHL 0.9% 50ML MIN-BAG+ 50 ML IVPB SCH (09:49)
[2020-04-17] MEDS: SODIUM CHLORIDE 0.9% (FLUSH) 10 ML SYG IV SCH (09:50)
[2020-04-17] MEDS: AZITHROMYCIN IV 500 MG in SODIUM CHLORIDE 0.9% 250ML 250 ML IVPB SCH (11:06)
[2020-04-17] MEDS: VANCOMYCIN HCL INJ 1,000 MG, VANCOMYCIN HCL INJ 500 MG in SODIUM CHLORIDE 0.9% 250ML 25... IVPB SCH (11:10)
[2020-04-17 15:00] VITALS: O2SAT 94
[2020-04-20] MEDS ORDERED: METHOTREXATE 25 MG/ML IM SCH (09:00)
--- NOTE | 2020-04-21 13:35 | DS ---
SUPERVISING PHYSICIAN: Alyssa Martin MD DISCHARGE DIAGNOSIS: 1. Gram positive bacteremia, likely etiology from left lower lobe pneumonia. 2. Sepsis secondary to both #1 and left lower lobe pneumonia, community acquired. 3. Altered mental status likely secondary to #1 and #2, showing improvement. 4. Electrolyte imbalance, resolved with replacement. 5. Significant constipation. 6. Rheumatoid arthritis. 7. Hypertension. 8. Gastroesophageal reflux disease. HISTORY OF PRESENT ILLNESS: This is a 74-year-old female patient who was brought to the Emergency Room because she was just not acting right. Her daughter said she is quite active, but the day of admission she felt very weak and was very difficult to understand because she could not speak clearly. She actually could not walk, but they finally got her up to walk and she was just so weak, she could not walk for more than just a few feet. She was brought to the Emergency Room and her vital signs were stable with the exception of her O2 saturation of 86% on room air. Lab studies were done and white blood cell count was 14,600 with hemoglobin 13.1, hematocrit 38. She had a left shift on her differential. Sodium 136, potassium 2.9, chloride 98, BUN 29, creatinine 1.05, lactic acid 2.3, total bilirubin 1.5, AST 49, ALT 36, alkaline phosphatase 68, troponin less than 0.02. Urinalysis was unremarkable. Her COVID-19 was negative. Blood cultures were drawn. Chest x-ray showed heart size and some pulmonary vascularity within normal limits, atherosclerosis in the thoracic aorta, hiatal hernia suspected, partially imaged dorsal column stimulator leads, mild bibasilar linear opacities but favored to atelectasis or scar and pleural fluid. No pleural effusion or pneumothorax. Her head CT shows no CT evidence of acute intracranial abnormality and mild senescent changes. Her chest CTA was suboptimal for evaluation of pulmonary embolism and limited the evaluation of segmental and subsegmental vessels. No evidence of embolus on the images provided. Basilar atelectasis, patchy area of nonspecific infiltrate in the left hemithorax. Imaging features can be seen with viral pneumonia though are nonspecific and can occur with a variety of infectious and noninfectious processes. The patient was given Rocephin in the ER as well as one dose of potassium. She was admitted to the Floor in stable condition. HOSPITAL COURSE: The pneumonia protocol was initiated which included azithromycin and Rocephin antibiotics as well as aggressive pulmonary hygiene including breathing treatments both p.r.n. and scheduled. Her home medications were restarted and she was started on a proton pump inhibitor for ulcer prophylaxis as well as Lovenox for DVT prophylaxis. Her lab studies were followed closely. She also underwent a carotid artery ultrasound. She slowly but progressively improved. She did have a positive blood culture with gram positive cocci and she remained in the hospital for further results of those studies. She was then started on vancomycin. Three of the four blood cultures came back no growth. One of the blood cultures was positive for gram positive cocci. That final report showed it was a contaminant and they were unable to do a C&S on that blood culture. Echocardiogram is unavailable. Carotid artery ultrasound showed 1) Doppler evaluation of the bilateral carotid systems and vertebral arteries showed no hemodynamically significant stenosis, less than 70%. 2) No significant amount of plaque in the carotid arteries bilaterally. Bilateral vertebral arteries showed antegrade cephalad flow. Her final chest x- ray shows no radiographic evidence of acute cardiopulmonary disease with chronic interstitial scarring or atelectasis stable from previous. DISCHARGE PLAN: The patient will be discharged home in stable condition. She is to resume her previous diet and increase her activity as tolerated. She is to followup with Dr. Delcid on 04/21/20 at 2:45 PM. In addition to her routine home medications, she will have Align, doxycycline, guaifenesin and azithromycin. She is to return to the hospital or followup with Dr. Delcid for any problems or complications. DISCHARGE MEDICATIONS: 1. Zocor. 2. Prednisone. 3. Nitroglycerin. 4. Methotrexate. 5. B vitamin. 6. Aspirin. 7. Ibuprofen. 8. Potassium. 9. [place] 3 fatty acids. 10. Niacin. 11. Multivitamins. 12. Metoprolol. 13. Magnesium. 14. Lisinopril. 15. Hydrocodone. 16. Gabapentin. 17. Cymbalta. 18. Chlorthalidone. 19. Refresh tears. 20. Calcium with vitamin D. 21. B Complex vitamins. 22. Pantoprazole. 23. Orencia. 24. Align. 25. Doxycycline. 26. Guaifenesin. 27. Azithromycin. #[id number] [facility]
== END 2020-04-17 13:40 | disposition home or self-care (01) | DRG 871 ==
LOC: ER 13:12 → MS 18:08 → OBSVTOIN 18:08
PROVIDERS: ADMIT Nurse Practitioner Acute Care; ATTEND Nurse Practitioner Acute Care
PROC: B32T1ZZ Computerized Tomography (CT Scan) of Left Pulmonary Artery using Low Osmolar Contrast (ICD-10-PCS; 2020-04-13)
PROC: B32S1ZZ Computerized Tomography (CT Scan) of Right Pulmonary Artery using Low Osmolar Contrast (ICD-10-PCS; 2020-04-13)
PROC: BW211ZZ Computerized Tomography (CT Scan) of Abdomen and Pelvis using Low Osmolar Contrast (ICD-10-PCS; principal; 2020-04-14)
DX: A41.9 Sepsis, unspecified organism (principal); J18.9 Pneumonia, unspecified organism; E87.6 Hypokalemia; E83.42 Hypomagnesemia; K59.00 Constipation, unspecified; M06.9 Rheumatoid arthritis, unspecified; I10 Essential (primary) hypertension; K21.9 Gastro-esophageal reflux disease without esophagitis; E78.5 Hyperlipidemia, unspecified; M48.061 Spinal stenosis, lumbar region without neurogenic claudication; Z79.891 Long term (current) use of opiate analgesic; Z79.82 Long term (current) use of aspirin; Z79.52 Long term (current) use of systemic steroids; Z79.899 Other long term (current) drug therapy; Z88.2 Allergy status to sulfonamides; Z96.89 Presence of other specified functional implants; Z79.1 Long term (current) use of non-steroidal anti-inflammatories (NSAID)

== ENCOUNTER → 2020-05-14 | Outpatient (CLI) | payer MEDICARE, OTHER ==
--- NOTE | 2020-05-14 15:05 | CT ---
EXAM DESCRIPTION: CT head without contrast CLINICAL HISTORY: UNSPECIFIED SIGNS INVOLVING COGNITIVE FUNCTIONS COMPARISON: Previous CT scan April 13, 2020 TECHNIQUE: Noncontrast head CT was performed with routine protocol. FINDINGS: Normal french-white matter differentiation. Ventricles and sulci are prominent consistent with age-related cerebral volume loss. Areas of low density in the white matter consistent with chronic microvascular ischemic changes. No new abnormality compared to the recent study in March 2020. No high density hemorrhage, focal edema or shift of the midline. No sulcal effacement. Normal orbital contents. Basilar cisterns appear clear. Intact calvarium with no fracture or lytic lesion. Normal aeration of tympanic cavities and mastoid air cells. No fluid levels in the paranasal sinuses. Skull base appears intact. Symmetrical internal auditory canals. IMPRESSION: No acute intracranial pathologic process. This exam was performed according to our departmental dose-optimization program, which includes automated exposure control, adjustment of the mA and/or kV according to patient size and/or use of iterative reconstruction technique. Total DLP equals 752.48 mGycm. Electronically signed by: Edvin Cunningham MD 05/14/2020 3:03 PM CDT
== END ==
LOC: CT 08:00
PROVIDERS: ATTEND Family Medicine
DX: R41.9 Unspecified symptoms and signs involving cognitive functions and awareness (principal)

== ENCOUNTER → 2020-07-02 | Outpatient (CLI) | payer MEDICARE, OTHER | LOC: GMAJ 10:55 | PROVIDERS: ATTEND Family Medicine | DX: R41.9 Unspecified symptoms and signs involving cognitive functions and awareness (principal); I10 Essential (primary) hypertension; E78.00 Pure hypercholesterolemia, unspecified ==